=== PATIENT | male | born 1980 | race Caucasian/White ===

== ENCOUNTER 2020-10-29 22:13 | Emergency (ER) | payer OTHER ==
[2020-10-29 23:02] LABS: BASOPHIL 0.5 % (0-2); EOSINOPHIL 2.9 % (0-5); HCT 46.2 % (42.0-52.0); HGB 15.8 g/dl (13.2-18.0); LYMPHOCYTE 43.1 % (15-48); MCH 29.7 pg (25.0-31.0); MCHC 34.2 g/dL (32.0-36.0); MCV 86.8 fL (78.0-100.0); MONOCYTE 6.1 % (0-12); MPV 9.8 fL (6.0-9.5); NEUTROPHIL 47.2 % (41-80); NRBC 0; PLT 339 K/uL (150-400); RBC 5.32 M/uL (4.70-6.00); RDW 12.4 % (11.5-14.0); WBC 8.2 K/uL (4.0-10.5)
[2020-10-29 23:41] LABS: ALBUMIN 3.8 g/dL (3.4-5.0); BILIRUBIN - TOTAL 0.3 mg/dL (0.2-1.0); BUN/CREAT RATIO (CALC) 24.1 RATIO; CREATININE 0.83 mg/dL (0.67-1.17); POTASSIUM 3.4 mmol/L (3.5-5.1); TOTAL PROTEIN 6.8 g/dL (6.4-8.2)
== END 2020-10-30 00:43 | disposition home or self-care (01) ==
LOC: FER 22:13
PROVIDERS: Emergency Medicine
DX: I49.3 Ventricular premature depolarization (principal); I49.1 Atrial premature depolarization
CPT/HCPCS: 36415; 80053; 83735; 84443; 84484; 85025; 93005